=== PATIENT | male | born 2000 | race Two or more races ===

== ENCOUNTER 2023-12-01 12:38 | Emergency (ER) | payer OTHER ==
[~2023-12-01] VITALS: Ht 165.1 cm; Wt 61.7 kg
[2023-12-01] MEDS ORDERED: HUMALOG100 UNIT/2 (13:20)
[2023-12-01] MEDS ORDERED: FAMOTIDINE/PF 20 MG in 0.9 % SODIUM CHLORIDE 8 ML IV PUSH STA (13:35)
[2023-12-01] MEDS ORDERED: MEPERIDINE HCL/PF 25 MG/ML VIAL IV ONE (13:45)
[2023-12-01] MEDS ORDERED: DEXTROSE 50 % IN WATER 0.5 G/ML VIAL IV ONE (13:53)
[2023-12-01] MEDS ORDERED: DEXTROSE 50 % IN WATER 0.5 G/ML DISP.SYRIN IV ONE (14:00)
[2023-12-01] MEDS ORDERED: FAMOTIDINE/PF 20 MG/2 ML VIAL ONE (14:02)
== END 2023-12-01 15:16 | disposition home or self-care (01) ==
LOC: ER 12:39
DX: R51.9 Headache, unspecified (principal); E10.9 Type 1 diabetes mellitus without complications; Z79.4 Long term (current) use of insulin

== ENCOUNTER 2023-12-20 09:33 | Emergency (ER) | payer OTHER ==
[~2023-12-20] VITALS: Ht 165.1 cm; Wt 61.7 kg
[~2023-12-20 09:33] MED LIST: HUMALOG100 UNIT/2
[2023-12-20] MEDS ORDERED: CEFTRIAXONE SODIUM 1,000 MG VIAL IM STA (10:11)
[2023-12-20] MEDS ORDERED: CEFTRIAXONE SODIUM 1,000 MG VIAL ONE (10:19)
[2023-12-20 10:31] VITALS: BP 125/77; O2SAT 100
== END 2023-12-20 10:32 | disposition home or self-care (01) ==
LOC: ER 09:34
DX: S51.852A Open bite of left forearm, initial encounter (principal); W54.0XXA Bitten by dog, initial encounter; Y93.9 Activity, unspecified; Y92.89 Other specified places as the place of occurrence of the external cause; Y99.9 Unspecified external cause status